=== PATIENT | female | born 1935 | race Caucasian/White ===

== ENCOUNTER → 2017-05-26 | Outpatient (CLI) | payer MEDICARE, OTHER ==
[~2017-05-26] MED LIST: AMLO-99 PO; ATOR10TA24 PO; ATOR20TA65 PO; BACDS PO; CEPH-13 PO; DABI150C3 PO; ESTR1 PO; ESTR1PAT84 TD; FLEC150T14 PO; FLEC50TA PO; FLEC50TA16 PO; FURO20TA19 PO; LEVO25TA64 PO; LEVO50TA86 PO; LISI20TA29 PO; LORA-633 PO; MELA1TAB24 PO; MU-V1TAB9 PO; NAPR220C12 PO; OLME1TAB63 PO; OXYC-865 PO; RIVA20TA PO; SYNTEST; UBID400C6 PO; VALS-25 PO; VALS1TAB64 PO; WAR25 PO; WAR5 PO; [UNRECOGNIZED DRUG - CODE] PO; [UNRECOGNIZED DRUG - CODE] PO; [UNRECOGNIZED DRUG - OTHER] PO; [UNRECOGNIZED DRUG - OTHER] PO; [UNRECOGNIZED DRUG - OTHER] PO
--- NOTE | 2017-05-26 16:16 | RADIOLOGY IMAGING REPORT ---
FACILITY: [facility] - [place] PATIENT NAME: Gely Boogie : 1935 MR: [id number] V: [id number] EXAM DATE: ORDERING PHYSICIAN: FLY MAGALLON TECHNOLOGIST: Location: [facility] - [place] Patient: Gely Boogie : 1935 Visit/Account:[id number] Date of Sevice: 05/26/2017 DEXA Scan Clinical history: Postmenopausal estrogen deficiency. Comparison: DEXA scan from 12/04/2011. LUMBAR SPINE: The bone mineral density (BMD) measured from L1-L4 correlates with a Z-score of 6.9 and a T-score of 5 which is Normal as defined by the World Health Organization. The corresponding risk of fracture in the lumbar spine is Not increased compared with a young adult reference population. This value has increased by 4.1 % since the prior study. More than 5% change is considered significant. HIP: Bone mineral density (BMD) measured in the LEFT total hip region correlates with a Z-score 3.3 and a T-score of 1.1 which is normal as defined by the World Health Organization. The corresponding risk of fracture in the hip is Not i ncreased compared to a young adult reference population. This value has decrease by 0.3 % since the p rior study. More than 5% change is considered significant. T score left femoral neck 0.6 Bone mineral density (BMD) measured in the Femoral Neck region measures 1.126 g/cm?. IMPRESSION: 1. Lumbar spine: Normal. There has been 4.1% increase in the bone mineral density since the previou s exam. 2. Left Total Hip: Normal. There has been 0.3% decrease in the bone mineral density since the previ ous exam. 3. Femoral Neck: Bone Mineral Density is 1.126 g/cm? The next DEXA scan of this patient should include the following sites: L1-L4 and the left hip. FRAX? WHO Fracture Risk Assessment Tool link: <http://www.shef.ac.uk/FRAX/tool.jsp?locationValue=9> PLEASE NOTE: 1) The World Health Organization defines low BMD as follows: T-score Normal > -1 Osteopenia < -1 and > -2.5 Osteoporosis < -2.5 without fractures Established osteoporosis < -2.5 with fractures 2) In general, you may wish to consider: Diagnosis Treatment Follow-up DEXA Normal BMD Prevention 2-3 years Osteopenia Prevention/therapy 1-2 years Osteoporosis Therapy Yearly 3) Fracture risk estimated from the T-score is more accurate for vertebral fractures (often spontane ous) than for hip fractures. Report Dictated By: Angela Ramon MD at 05/26/2017 3:57 PM Report E-Signed By: Angela Ramon MD at 05/26/2017 4:12 PM WSN:[email or web address]
--- NOTE | 2017-05-27 17:29 | RADIOLOGY IMAGING REPORT ---
[place] [facility] [place] JASPAL BOONE : [id number] MR: [id number] V: [id number] EXAM DATE: [id number] ORDERING PHYSICIAN: FLY MAGALLON TECHNOLOGIST: Zamzam Black PROCEDURE:BILATERAL DIGITAL SCREENING MAMMOGRAM WITH CAD ASSISTED INTERPRETATION AND 3D BREAST TOMOSYNTHESIS. COMPARISON:None. This is the patient's new baseline mammogram as no prior mammograms are available for comparison. INDICATIONS:BASELINE FINDINGS: A small amount of fibroglandular tissue is seen throughout the breasts. There is a focal area of increased density zone 2 in the upper portion of the right breast and right MLO view for which spot compression view is recommended. Additionally, spot compression view is recommended of the left retroareolar tissues on the left MLO view. DIAGNOSTIC CATEGORY 0--INCOMPLETE: NEED ADDITIONAL IMAGING EVALUATION. RECOMMENDATIONS: ADDITIONAL MAMMOGRAPHIC VIEWS REQUIRED: BILATERAL BREASTS. IMPRESSION: BI-RADS 0: Additional views of both breasts recommended as described. Images were reviewed with R2CAD and 3D breast tomosynthesis. Dictated by: Angela Ramon M.D. on 05/26/2017 at 17:19 Transcribed by: ANIYA on 05/26/2017 at 18:25 Approved by: Angela Ramon M.D. on 05/27/2017 at 17:28 [facility]
== END ==
LOC: MAMO 01:28
PROVIDERS: ATTEND Emergency Medicine
DX: Z13.820 Encounter for screening for osteoporosis (principal); Z12.31 Encounter for screening mammogram for malignant neoplasm of breast; Z78.0 Asymptomatic menopausal state; R92.8 Other abnormal and inconclusive findings on diagnostic imaging of breast
CPT/HCPCS: 77063; 77067; 77080

== ENCOUNTER → 2017-06-05 | Outpatient (CLI) | payer MEDICARE, OTHER ==
[~2017-06-05] MED LIST changes: +AMLO2.5T74 PO; +CALC-115 PO; +CART1TAB5 PO; +CHOL10005 PO; +GLUC1TAB66 PO; +MULT-19 PO; +OPTIMIZED FOLATE PO; +UBID1CAP4 PO; +[UNRECOGNIZED DRUG - OTHER] PO
--- NOTE | 2017-06-11 14:39 | RADIOLOGY IMAGING REPORT ---
FACILITY: [facility] - [place] PATIENT NAME: JASPAL BOONE : [id number] MR: [id number] V: [id number] EXAM DATE: [id number] ORDERING PHYSICIAN: FLY MAGALLON TECHNOLOGIST: Natalia Collins PROCEDURE:BILATERAL DIAGNOSTIC DIGITAL MAMMOGRAM WITH CAD ASSISTED INTERPRETATION & 3D BREAST TOMOSYNTHYSIS COMPARISON:Prior study 05/26/2017. The prior outside mammograms have just been received for comparison. These are dated 09/09/13, 09/07/12, 09/04/11, 08/27/10. INDICATIONS:abnormal mammogram/further evaluation FINDINGS: A small amount of fibroglandular tissue is seen throughout the breasts. When compared to the prior mammograms the parenchymal pattern has remained stable when allowing for difference in mammographic technique & patient positioning. There is no evidence of malignant appearing mass, malignant appearing calcification or secondary sign of malignancy in either breast. DIAGNOSTIC CATEGORY 2--BENIGN FINDING. RECOMMENDATIONS: ROUTINE MAMMOGRAM AND CLINICAL EVALUATION. IMPRESSION: BIRADS 2: Benign finding. 1. No significant abnormality is seen Dictated by: Angela Ramon M.D. on 06/10/2017 at 16:38 Transcribed by: CLIFFORD on 06/11/2017 at 9:27 Approved by: Angela Ramon M.D. on 06/11/2017 at 14:38 [facility]
== END ==
LOC: MAMO 01:23
PROVIDERS: ATTEND Emergency Medicine
DX: R92.8 Other abnormal and inconclusive findings on diagnostic imaging of breast (principal)
CPT/HCPCS: 77062; 77066

== ENCOUNTER 2018-01-19 20:08 | Emergency (ER) | payer MEDICARE, OTHER ==
[~2018-01-19 20:08] MED LIST changes: +ATOR10TA65 PO; +ESTR-33 PO; +LIFI1DRO OU
--- NOTE | 2018-01-19 20:26 | ER Report ---
History and Physical Time Seen By MD: 20:27 Hx. of Stated Complaint: PT REPORTS PAIN IN LEFT SIDE OF NECK AND LEFT SHOULDER HPI/ROS CHIEF COMPLAINT: neck and shoulder pain HISTORY OF PRESENT ILLNESS: This is an 82 year old female. She had some pain in the left neck and left shoulder/arm area that started this morning. Severe pain. Worsening through the day. Some chest tightness at times as well. Mild shortness of breath. Does hurt worse to move. No injuries noted. No cough, fevers or chills. No headache. Has normal bowel and bladder function. No rashes. Allergies: Coded Allergies: Beta-Blockers (Beta-Adrenergic Bloc (Verified Allergy, Intermediate, FAINT, 01/19/18) olmesartan (Verified Allergy, Intermediate, DIARRHEA, 01/19/18) promethazine (Verified Adverse Reaction, Mild, "GOES LOOPY", 01/19/18) Home Meds Active Scripts Prednisone (PREDNISONE) 20 Mg Tablet, 40 MG PO QDAY, #8 TAB 0 Refills Prov:AMINA ROBINS MD 01/20/18 Hydrocodone Bit/Acetaminophen (HYDROCODON-ACETAMINOPHEN 5-325) 1 Each Tablet, 1 EACH PO Q4H PRN for PAIN, #12 TAB 0 Refills Prov:AMINA ROBINS MD 01/20/18 Cyclobenzaprine Hcl (CYCLOBENZAPRINE HCL) 10 Mg Tablet, 10 MG PO Q8H PRN for MUSCLE SPASMS, #20 TAB 0 Refills Prov:AMINA ROBINS MD 01/20/18 Flecainide Acetate (FLECAINIDE ACETATE) 150 Mg Tablet, 75 MG PO BID, #180 TAB 3 Refills Prov:LADAN VANEGAS MD 12/16/17 Estradiol (ESTRADIOL) 1 Mg Tablet, 1 MG PO QDAY for 90 Days, #90 TAB 2 Refills Prov:LADAN VANEGAS MD 09/15/17 Rivaroxaban 20 Mg (XARELTO 20 MG) 20 Mg Tablet, 20 MG PO DAILY for 90 Days, #90 TAB 4 Refills Prov:LADAN VANEGAS MD 09/09/17 Amlodipine Besylate (AMLODIPINE BESYLATE) 2.5 Mg Tablet, 1 TAB PO QDAY for 90 Days, #90 TAB 4 Refills Prov:LADAN VANEGAS MD 09/08/17 Levothyroxine Sodium (LEVOTHYROXINE SODIUM) 50 Mcg Tablet, 1 TAB PO QDAY for 90 Days, #90 TAB 4 Refills Prov:LADAN VANEGAS MD 09/08/17 Atorvastatin Calcium (ATORVASTATIN CALCIUM) 10 Mg Tablet, 1 TAB PO BID for 90 Days, #180 TAB 4 Refills Prov:LADAN VANEGAS MD 07/28/17 Reported Medications Lifitegrast (Xiidra) 5 % Droperette, 1 DROP OU BID 12/16/17 Cholecalciferol (Vitamin D3) (VITAMIN D3) Unknown Strength Tablet, 1 TAB PO DAILY, TAB 06/12/17 Melatonin/Pyridoxine Hcl (B6) (MELATONIN 1 MG TABLET) 1 Each Tablet, 1 EACH PO HS 06/12/17 Calcium Phos/Vit D3/Mag Oxide (Posture-D Caplet) 600 Mg Calcium-500 Unit-50 Mg Tablet, 1 TAB PO DAILY 06/12/17 Ubidecarenone/Vit E/Vit E Mix (Co-Enzyme Q10 100 mg Softgel) 100 Mg-20 Mg-15 Mg Capsule, 1 CAP PO DAILY 06/12/17 Glucosam/Chond/Hyalu/Cf Borate (Move Free Joint Health Tablet) 750 Mg-100 Mg- 1.65 Mg-108 Mg Tablet, 1 TAB PO DAILY 06/12/17 [Juvenon] No Conflict Check, 1 CAP PO DAILY Biotin 300mcg, AcetylCarnitine 1000mg, Alpha Lipoic acid 400mg 06/12/17 Multivits-Min/Iron/FA/Lutein (Centrum Silver Women Tablet) 1 Each Tablet, 1 TAB PO DAILY 06/12/17 Cartilage/Collagen/Bor/Hyalur (Joint Health Tablet) 40 Mg-10 Mg-5 Mg-3.3 Mg Tablet, 1 TAB PO DAILY 06/12/17 [optimized folate] No Conflict Check, 1000 MCG PO DAILY 06/12/17 Reviewed Nurses Notes: Yes Hx Smoking: Yes Smoking Status: Former Smoker Hx Substance Use Disorder: No Constitutional Vital Sign - Last 24 Hours 01/19/18 01/19/18 01/19/18 01/19/18 20:13 20:13 20:16 20:23 Temp 97.8 Pulse 70 63 Resp 16 16 B/P (MAP) 223/90 223/90 (134) 197/81 (119) Pulse Ox 93 100 O2 Delivery Room Air 01/19/18 01/19/18 01/19/18 01/19/18 20:30 20:38 20:53 21:08 Pulse 61 60 62 Resp 12 24 33 B/P (MAP) 189/81 (117) Pulse Ox 95 01/19/18 01/19/18 01/19/18 01/19/18 21:23 21:30 21:35 21:50 Pulse 61 60 60 Resp 19 11 10 B/P (MAP) 186/78 (114) Pulse Ox 95 93 95 01/19/18 01/19/18 01/19/18 01/19/18 22:00 22:05 22:20 22:35 Pulse 60 64 Resp 15 17 7 B/P (MAP) 178/82 (114) Pulse Ox 97 95 96 01/19/18 01/19/18 01/19/18 01/19/18 22:50 22:55 23:00 23:10 Pulse 61 60 60 Resp 15 14 7 B/P (MAP) 178/75 (109) Pulse Ox 94 95 92 01/19/18 01/19/18 01/19/18 01/19/18 23:25 23:30 23:40 23:55 Pulse 60 60 60 Resp 8 35 43 B/P (MAP) 170/80 (110) Pulse Ox 96 91 94 01/20/18 01/20/18 00:00 00:10 Pulse 60 Resp 12 B/P (MAP) 152/70 (97) Pulse Ox 95 Physical Exam General Appearance: The patient is alert. Having some distress because of the pain. Non-toxic in appearance. Eyes: Pupils are equal, round. No pallor, injection or icterus. ENT: Mucous membranes are moist. Normal oral mucosa. Posterior oropharynx is normal. Neck: Supple and some tenderness in the left SCM and posterior muscles. No lymphadenopathy. Respiratory: Lungs are clear to auscultation. There are no retractions or accessory muscle use. Cardiovascular: Regular rate and rhythm. No murmurs, gallops or rubs. Normal capillary refill. No edema. Gastrointestinal: Abdomen is soft and non tender. Nondistended. Normal active bowel sounds. Neurological: Alert and oriented x3. No focal neurologic changes in the extremities. Skin: Warm and dry. No rashes. Musculoskeletal: Some tenderness in the posterior paraspinous muscles of the cervical and lumbar spine, pain into levator scapulae, rhomboids and trapezius. No tenderness in palpation of the cervical, thoracic and lumbar spine. DIFFERENTIAL DIAGNOSIS: After history and physical exam, differential diagnosis was considered for neck and back pain, with some concerns for possible cardiac cause versus pulmonary versus musculoskeletal Medical Decision Making Data Points Result Diagram: 01/19/18202401/19/182024 Laboratory Hematology Test 01/19/18 20:25 01/19/18 23:39 Red Blood Count 4.98 M/uL (4.17-5.56) Mean Corpuscular Volume 92.7 fL (80.0-96.0) Mean Corpuscular Hemoglobin 31.5 pg (26.0-33.0) Mean Corpuscular Hemoglobin Concent 34.0 g/dL (32.0-36.0) Red Cell Distribution Width 13.5 % (11.5-14.5) Mean Platelet Volume 8.7 fL (7.2-11.1) Neutrophils (%) (Auto) 64.4 % (39.4-72.5) Lymphocytes (%) (Auto) 23.0 % (17.6-49.6) Monocytes (%) (Auto) 10.1 % (4.1-12.4) Eosinophils (%) (Auto) 1.6 % (0.4-6.7) Basophils (%) (Auto) 0.9 % (0.3-1.4) Nucleated RBC Relative Count (auto) 0.0 /100WBC Neutrophils # (Auto) 7.3 K/uL (2.0-7.4) Lymphocytes # (Auto) 2.6 K/uL (1.3-3.6) Monocytes # (Auto) 1.1 K/uL (0.3-1.0) Eosinophils # (Auto) 0.2 K/uL (0.0-0.5) Basophils # (Auto) 0.1 K/uL (0.0-0.1) Nucleated RBC Absolute Count (auto) 0.00 K/uL Erythrocyte Sedimentation Rate 20 mm/HOUR (0-30) Sodium Level 138 mmol/L (137-145) Potassium Level 3.4 mmol/L (3.5-5.0) Chloride Level 101 mmol/L (98-107) Carbon Dioxide Level 27 mmol/L (22-31) Blood Urea Nitrogen 22 mg/dl (7-18) Creatinine 0.70 mg/dl (0.52-1.04) Glomerular Filtration Rate Calc > 60.0 Random Glucose 161 mg/dl (75-110) Calcium Level 9.0 mg/dl (8.4-10.2) Total Bilirubin 0.4 mg/dl (0.2-1.3) Aspartate Amino Transf (AST/SGOT) 23 U/L (0-35) Alanine Aminotransferase (ALT/SGPT) 23 U/L (0-56) Alkaline Phosphatase 95 U/L (0-126) C-Reactive Protein 3.7 mg/dl (<1.0) Total Protein 6.8 g/dl (6.3-8.2) Albumin 3.8 g/dl (3.5-5.0) Troponin I < 0.012 ng/ml Chemistry Test 01/19/18 20:25 01/19/18 23:39 White Blood Count 11.3 k/uL (4.5-11.0) Red Blood Count 4.98 M/uL (4.17-5.56) Hemoglobin 15.7 g/dL (12.0-16.0) Hematocrit 46.2 % (34.0-47.0) Mean Corpuscular Volume 92.7 fL (80.0-96.0) Mean Corpuscular Hemoglobin 31.5 pg (26.0-33.0) Mean Corpuscular Hemoglobin Concent 34.0 g/dL (32.0-36.0) Red Cell Distribution Width 13.5 % (11.5-14.5) Platelet Count 292 K/uL (150-450) Mean Platelet Volume 8.7 fL (7.2-11.1) Neutrophils (%) (Auto) 64.4 % (39.4-72.5) Lymphocytes (%) (Auto) 23.0 % (17.6-49.6) Monocytes (%) (Auto) 10.1 % (4.1-12.4) Eosinophils (%) (Auto) 1.6 % (0.4-6.7) Basophils (%) (Auto) 0.9 % (0.3-1.4) Nucleated RBC Relative Count (auto) 0.0 /100WBC Neutrophils # (Auto) 7.3 K/uL (2.0-7.4) Lymphocytes # (Auto) 2.6 K/uL (1.3-3.6) Monocytes # (Auto) 1.1 K/uL (0.3-1.0) Eosinophils # (Auto) 0.2 K/uL (0.0-0.5) Basophils # (Auto) 0.1 K/uL (0.0-0.1) Nucleated RBC Absolute Count (auto) 0.00 K/uL Erythrocyte Sedimentation Rate 20 mm/HOUR (0-30) Glomerular Filtration Rate Calc > 60.0 Calcium Level 9.0 mg/dl (8.4-10.2) Total Bilirubin 0.4 mg/dl (0.2-1.3) Aspartate Amino Transf (AST/SGOT) 23 U/L (0-35) Alanine Aminotransferase (ALT/SGPT) 23 U/L (0-56) Alkaline Phosphatase 95 U/L (0-126) C-Reactive Protein 3.7 mg/dl (<1.0) Total Protein 6.8 g/dl (6.3-8.2) Albumin 3.8 g/dl (3.5-5.0) Troponin I < 0.012 ng/ml EKG/Imaging EKG Interpretation 12 lead EKG: Rhythm: normal sinus rhythm, rate 61 [place]: normal QRS: normal ST segments: Nonspecific flattening, no elevation or depression noted Imaging CHEST SINGLE AP Indication: Neck pain. Left shoulder pain. Comparison: 02/25/2016 Findings: Dual-lead left subclavian pacemaker is in place. The lungs are clear. Apparent increased density in the right upper lung is felt to be related to the overlying scapula. No pneumothorax or pleural effusion. Heart size is normal. IMPRESSION: 1. No acute cardiopulmonary process. 2. Pacemaker. Report Dictated By: Alexis De La Paz at 01/19/2018 10:16 PM 4 views cervical spine Indication: Neck pain. Comparison: None available. Findings: 4 views of the cervical spine are obtained. Lateral view is limited to the C6-C7 level. There is 3 mm of anterolisthesis of C3 upon C4 and there is 3 mm of anterolisthesis of C4 upon C5. No fracture deformity is seen. The open-mouth and odontoid views are unremarkable. Multilevel degenerative disc disease, facet osteoarthritis and uncovertebral joint osteoarthritis is present. This is most pronounced at C5-6 and C6-7. Prevertebral soft tissues are normal. On the frontal projection, left carotid artery atherosclerotic calcifications are seen. There is a pacemaker. IMPRESSION: 1. 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 2. Anterolisthesis C3 upon C4 and C4 upon C5, likely degenerative. Report Dictated By: Alexis De La Paz at 01/19/2018 10:18 PM SHOULDER MIN 2 VIEWS LEFT Indication: Shoulder pain. Comparison: Unavailable Findings: 2 views of the left shoulder are submitted. No fracture or dislocation is seen on this two-view examination. There may be an old Hill-Sachs deformity of the humeral head. Correlate clinically. Mild changes of osteoarthritis are suggested at the acromioclavicular joint. A pacemaker is in place. IMPRESSION: 1. No acute fracture or dislocation on this two-view study of the left shoulder. 2. Question old Hill-Sachs deformity of the humeral head. Report Dictated By: Alexis De La Paz at 01/19/2018 10:21 PM ED Course/Re-evaluation Clinical Indication for ER IV: Hydration, IV Access ED Course Patient had some improvement with the initial IV Morphine. She had negative EKG and labs with negative troponin. Repeat troponin negative. This appears musculoskeletal. Lortab and Flexeril with significant reduction. See instructions below. Decision to Disposition Date: Jan 20, 2018 Decision to Disposition Time: 00:28 Depart Departure Latest Vital Signs Vital Signs Date Time Temp Pulse Resp B/P (MAP) Pulse Ox O2 Delivery O2 Flow Rate FiO2 01/20/18 00:10 60 12 95 01/20/18 00:00 152/70 (97) 01/19/18 20:13 97.8 Room Air Impression: Primary Impression: Musculoskeletal pain of left upper extremity Additional Impression: Musculoskeletal neck pain Condition: Improved Disposition: HOME OR SELF-CARE Referrals: LADAN VANEGAS MD (PCP) New Scripts Prednisone (PREDNISONE) 20 Mg Tablet 40 MG PO QDAY, #8 TAB 0 Refills Prov: AMINA ROBINS MD 01/20/18 Hydrocodone Bit/Acetaminophen (HYDROCODON-ACETAMINOPHEN 5-325) 1 Each Tablet 1 EACH PO Q4H PRN for PAIN, #12 TAB 0 Refills Prov: AMINA ROBINS MD 01/20/18 Cyclobenzaprine Hcl (CYCLOBENZAPRINE HCL) 10 Mg Tablet 10 MG PO Q8H PRN for MUSCLE SPASMS, #20 TAB 0 Refills Prov: AMINA ROBINS MD 01/20/18 Patient Instructions: Musculoskeletal Pain (ED) Additional Instructions: Your neck and shoulder/back area pain was not found to be from a heart or lung problem. It appears likely inflammatory in nature. Use Flexeril 10mg every 8 hours as needed for pain. This is a muscle relaxer. Take Lortab 5/325, one every 4 hours as needed for severe pain. Take Prednisone 20mg tablets, take 2 tablets once a day for 4 days. Rest and increase fluid intake. Range of motion exercises. Problem Qualifiers AMINA ROBINS MD Jan 19, 2018 20:26
--- NOTE | 2018-01-19 20:27 | EKG ---
FACILITY: [facility] [place]IENT NAME: JASPAL BOONE : [id number] MR: [id number] V: [id number] EXAM DATE: ORDERING PHYSICIAN: AMINA ROBINS TECHNOLOGIST: SHOLA Test Reason : CARDIAC Blood Pressure : / mmHG Vent. Rate : 061 BPM Atrial Rate : 061 BPM P-R Int : 192 ms QRS Dur : 090 ms QT Int : 406 ms P-R-T Axes : 074 -20 -01 degrees QTc Int : 408 ms Sinus rhythm Left axis Poor R wave progression anteriorly Diffuse T wave flattening Abnormal ECG Previous EKGs show electronic atrial pacemaker Confirmed by GABBY DEXTER ([id number] on 01/20/2018 6:28:37 AM Referred By: Confirmed By:GABBY DEXTER
[2018-01-19] MEDS ORDERED: ONDANSETRON 4 MG/2 ML VIAL IVP ONE (20:40)
[2018-01-19] MEDS ORDERED: MORPHINE 4 MG/ML SDV IVP ONE (20:40)
[2018-01-19 20:51] LABS: PLATELET COUNT, AUTOMATED 292 K/uL (150-450)
--- NOTE | 2018-01-19 22:22 | RADIOLOGY IMAGING REPORT ---
FACILITY: [facility] PATIENT NAME: Gely Boogie : 1935 MR: [id number] V: [id number] EXAM DATE: ORDERING PHYSICIAN: AMINA ROBINS TECHNOLOGIST: Location: [facility] - [place] Patient: Gely Boogie : 1935 Visit/Account:[id number] Date of Sevice: 01/19/2018 CHEST SINGLE AP Indication: Neck pain. Left shoulder pain. Comparison: 02/25/2016 Findings: Dual-lead left subclavian pacemaker is in place. The lungs are clear. Apparent increased density in the right upper lung is felt to be related to t he overlying scapula. No pneumothorax or pleural effusion. Heart size is normal. IMPRESSION: 1. No acute cardiopulmonary process. 2. Pacemaker. Report Dictated By: Alexis De La Paz at 01/19/2018 10:16 PM Report E-Signed By: Alexis De La Paz at 01/19/2018 10:18 PM WSN:[id number]
--- NOTE | 2018-01-19 22:25 | RADIOLOGY IMAGING REPORT ---
FACILITY: [facility] - [place] PATIENT NAME: Gely Boogie : 1935 MR: [id number] V: [id number] EXAM DATE: ORDERING PHYSICIAN: AMINA ROBINS TECHNOLOGIST: Location: [facility] - [place] Patient: Gely Boogie : 1935 Visit/Account:[id number] Date of Sevice: 01/19/2018 4 views cervical spine Indication: Neck pain. Comparison: None available. Findings: 4 views of the cervical spine are obtained. Lateral view is limited to the C6-C7 level. There is 3 mm of anterolisthesis of C3 upon C4 and there is 3 mm of anterolisthesis of C4 upon C5. No fracture def ormity is seen. The open-mouth and odontoid views are unremarkable. Multilevel degenerative disc dise ase, facet osteoarthritis and uncovertebral joint osteoarthritis is present. This is most pronounced at C5-6 and C6-7. Prevertebral soft tissues are normal. On the frontal projection, left carotid arter y atherosclerotic calcifications are seen. There is a pacemaker. IMPRESSION: 1. 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 2. Anterolisthesis C3 upon C4 and C4 upon C5, likely degenerative. Report Dictated By: Alexis De La Paz at 01/19/2018 10:18 PM Report E-Signed By: Alexis De La Paz at 01/19/2018 10:21 PM WSN:[email or web address]
--- NOTE | 2018-01-19 22:27 | RADIOLOGY IMAGING REPORT ---
FACILITY: [facility] - [place] PATIENT NAME: Gely Boogie : 1935 MR: [id number] V: [id number] EXAM DATE: ORDERING PHYSICIAN: AMINA ROBINS TECHNOLOGIST: [place] [facility] [place] Gely Bo[place] : 1935 Visit/Account:[id number] Date of Sevice: 01/19/2018 SHOULDER MIN 2 VIEWS LEFT Indication: Shoulder pain. Comparison: Unavailable Findings: 2 views of the left shoulder are submitted. No fracture or dislocation is seen on this two-view examination. There may be an old Hill-Sachs defor mity of the humeral head. Correlate clinically. Mild changes of osteoarthritis are suggested at the a cromioclavicular joint. A pacemaker is in place. IMPRESSION: 1. No acute fracture or dislocation on this two-view study of the left shoulder. 2. Question old Hill-Sachs deformity of the humeral head. Report Dictated By: Alexis De La Paz at 01/19/2018 10:21 PM Report E-Signed By: Alexis De La Paz at 01/19/2018 10:23 PM WSN:[id number]
[2018-01-19] MEDS ORDERED: CYCLOBENZAPRINE HCL 10 MG TAB PO ONE (23:15)
[2018-01-19] MEDS ORDERED: APAP/HYDROCODONE 325/5 TAB PO ONE (23:15)
[2018-01-20] VITALS: BP 152/70
[2018-01-20] MEDS ORDERED: PRED20TA6 PO (00:30)
[2018-01-20] MEDS ORDERED: CYCL10TA29 PO (00:30)
[2018-01-20] MEDS ORDERED: LOR5/325 PO (00:30)
[2018-01-20] MEDS ORDERED: CYCLOBENZAPRINE HCL 10 MG TH PO ONE (00:40)
[2018-01-20] MEDS ORDERED: ACET/HYDROC 5/325MG TH ER ONLY 2 TAB/BOTTLE PO ONE (00:40)
== END 2018-01-20 00:55 | disposition home or self-care (01) ==
LOC: ER 20:47
DX: M54.2 Cervicalgia (principal); M25.512 Pain in left shoulder
CPT/HCPCS: 71045; 72040; 73030; 84484; 85025; 85651; 86140; 93005; 96374; 96375; 99285; A9270; J2270; J2405; 82040; 82247; 82310; 82374; 82435; 82565; 82947; 84075; 84132; 84155; 84295; 84450; 84460; 84520